=== PATIENT | male | born 1990 | race Caucasian/White ===

== ENCOUNTER → 2023-03-06 16:05 | Outpatient (BNVA) | payer OTHER, SELFPAY | PROVIDERS: PCP Internal Medicine; Visit Provider Internal Medicine | DX: Z11.59 Encounter for screening for other viral diseases (principal); R10.9 Unspecified abdominal pain; R14.0 Abdominal distension (gaseous); R19.4 Change in bowel habit | CPT/HCPCS: 99202 ==

== ENCOUNTER → 2023-03-19 12:06 | Outpatient (BNVA) | payer OTHER, SELFPAY | PROVIDERS: PCP Internal Medicine; Visit Provider Nurse Practitioner Family | DX: R35.1 Nocturia (principal); R39.12 Poor urinary stream; N52.9 Male erectile dysfunction, unspecified; A63.0 Anogenital (venereal) warts | CPT/HCPCS: 99202 ==

== ENCOUNTER 2023-05-10 12:02 | Outpatient (REF) | payer OTHER, SELFPAY ==
[2023-05-10 15:16] LABS: Hematocrit 45.1 % (42.0-52.0); Hemoglobin 15.6 g/dl (14.0-18.0); Mean Corpuscular HGB Conc 34.6 g/dl (31.0-36.0); Mean Corpuscular Hemoglobin 31.4 pg (27.0-33.0); Mean Corpuscular Volume 90.7 fL (80.0-98.0); Mean Platelet Volume 10.7 fL (9.4-12.4); Platelet Count 244 X10*3/uL (160-400); Red Blood Count 4.97 X10*6/uL (4.60-5.80); Red Cell Distribution Width 11.9 % (11.0-16.0); White Blood Count 3.8 X10*3/uL (4.8-10.8)
[2023-05-10 15:24] LABS: Alanine Aminotransferase 91 U/L (0-40); Albumin Level 4.5 g/dL (3.5-5.0); Alkaline Phosphatase 77 U/L (39-117); Anion Gap 11 (12-20); Aspartate Amino Transferase 52 U/L (5-37); Bilirubin Total 0.5 mg/dL (0.0-1.0); Blood Urea Nitrogen 5 mg/dL (9-16); C Reactive Protein < 0.10 mg/dL (< or = 0.50); Calcium 9.5 mg/dL (8.4-10.2); Carbon Dioxide 27 mmol/L (22-29); Chloride 105 mmol/L (96-108); Estimated Glomerular Filt Rate > 60; Glucose Random 84 mg/dL (60-115); Potassium 4.2 mmol/L (3.3-5.1); Sodium 139 mmol/L (135-145); Total Protein 7.6 g/dL (6.5-8.0)
[2023-05-10 15:39] LABS: TSH reflex Free T4 0.85 uIU/mL (0.32-4.0); Thyroid Stimulating Hormone 0.85 uIU/mL (0.32-4.0)
[2023-05-11 03:27] LABS: Hepatitis B Core Antibody Nonreactive (Nonreactive); Hepatitis B Surface Antigen Negative (Negative); ~HepC Num1 0.17 S/CO (0.00-0.79); ~Hepatitis B Surface Antibody REACTIVE (Nonreactive); ~Hepatitis C Antibody Nonreactive (Nonreactive)
[2023-05-12 05:53] LABS: Follicle Stimulating Hormone 1.7 mIU/mL (1.6-8.0); Lutenizing Hormone 2.4 mIU/mL (1.5-9.3); Prolactin 11.1 ng/mL (2.0-18.0)
[2023-05-14 13:18] LABS: Immunoglobulin A 262 mg/dL (47-310)
[2023-05-14 14:38] LABS: Transglutaminase IgA <1.0 U/mL
[2023-05-16 12:08] LABS: Sex Hormone Binding Globulin 8 nmol/L (10-50); Testosterone-Albumin 4.5 g/dL (3.6-5.1); Testosterone-Bioavailable 159.3 ng/dL (110.0-575.0); Testosterone-Free 77.5 pg/mL (46.0-224.0); Testosterone-Total 257 ng/dL (250-1100)
== END 2023-05-10 12:03 | disposition home or self-care (01) ==
LOC: HO.WFDLDS 12:02
PROVIDERS: Internal Medicine; Visit Provider Nurse Practitioner Family
DX: Z11.59 Encounter for screening for other viral diseases (principal); R10.9 Unspecified abdominal pain; R14.0 Abdominal distension (gaseous); N52.9 Male erectile dysfunction, unspecified
CPT/HCPCS: 36415; 80053; 82784; 83001; 83002; 84146; 84270; 84402; 84403; 84443; 85027; 86140; 86364; 86704; 86706; 86803; 87340